=== PATIENT | female | born 1970 | race Caucasian/White ===

== ENCOUNTER 2017-08-02 12:55 | Inpatient (IN) | payer OTHER ==
[~2017-08-02] VITALS: Ht 165.1 cm; Wt 78.6 kg
[~2017-08-02 12:55] MED LIST: ALBU3SOL49 IH; AMIK500I IV; BACL10TA4 GT; BISA10SU1 RC; CALC-46 GT; DOCU50SO1 GT/PO; HEPA500056 SUBQ; LACT10SO11 GT; LEVE1000 GT; MAGN400S60 GT; MEDI30SO1 GT; MERO1PDS2 IV; MULT5SOL7 GT; NA P135N9 RC; SACC250C6 GT; TOP100 PO
[2017-08-02] MEDS ORDERED: NACL 0.9% 1,000 ML IV ONE ×2 (13:00→16:30)
[2017-08-02] MEDS ORDERED: ALBUTEROL SULFATE/IPRATROPIU 3 ML SOL IH ONE ×2 (13:00)
[2017-08-02 13:05] VITALS: BP 137/81
[2017-08-02 13:58] LABS: HEMATOCRIT 41.4 % (36-48); HEMOGLOBIN 13.5 g/dL (12.0-16.0); MEAN CORPUSCULAR HEMOGLOBIN 31 pg (27-31); MEAN CORPUSCULAR HGB CONC 33 g/dL (33-37); MEAN CORPUSCULAR VOLUME 94 fL (80-94); PLATELET COUNT (AUTO) 534 K/uL (140-450); RED CELL DISTRIBUTION WIDTH 12.1 % (11.6-13.7)
[2017-08-02] MEDS ORDERED: PIPERACILLIN/TAZOBACTAM 3.375 GM in DEXTROSE 5% 50 ML IV ONE (14:00)
[2017-08-02 14:11] LABS: PROTHROMBIN TIME 12.4 secs (10.8-13.4)
[2017-08-02 14:12] LABS: ALBUMIN 2.2 g/dL (3.4-5.0); ANION GAP 14.1 (8-16); CARBON DIOXIDE 22.3 mmol/L (21-32); CREATININE 0.8 mg/dL (0.6-1.3); POTASSIUM 3.4 mmol/L (3.5-5.1); TOTAL BILIRUBIN 1.4 mg/dL (0.0-1.0)
[2017-08-02 14:18] LABS: WHITE BLOOD COUNT (AUTO) 75.5 K/uL (4.8-10.8)
[2017-08-02] MEDS ORDERED: AMPICILLIN/SULBACTAM 3 GM VIAL ONE (14:25)
[2017-08-02] MEDS ORDERED: PIPER/TAZO 3.375GM/D5W PREMIX 50 ML IV SCH (14:29)
[2017-08-02 14:32] LABS: LYMPHOCYTES % (MANUAL) 1 % (20-46); MONOCYTES % (MANUAL) 10 % (5-12)
[2017-08-02] MEDS ORDERED: DOCUSATE SODIUM 100 MG GELCAP PO PRN (14:50)
[2017-08-02] MEDS ORDERED: ONDANSETRON 4 MG/2 ML VIAL IM/IVP PRN (14:50)
[2017-08-02] MEDS ORDERED: LAM200 GT (15:09)
[2017-08-02] MEDS ORDERED: TOP100 GT (15:09)
[2017-08-02 15:56] LABS: CHOL/HDL RATIO 5.5 (1-4.5); FREE T4 (FREE THYROXINE) 1.63 ng/dL (0.76-1.46); PHOSPHORUS 3.7 mg/dL (2.5-4.9); THYROID STIMULATING HORMONE 1.5 uIU/mL (0.34-3.74)
[2017-08-02] MEDS ORDERED: ALBUTEROL SULFATE/IPRATROPIU 3 ML SOL IH PRN (16:25)
[2017-08-02] MEDS ORDERED: BISACODYL 10 MG SUPP RC PRN (16:25)
[2017-08-02] MEDS ORDERED: MAGNESIUM HYDROXIDE 2400 MG/30 ML UDC GT PRN (16:25)
[2017-08-02 16:52] LABS: BILIRUBIN,URINE 1+ (NEGATIVE); BLOOD, URINE 1+ (NEGATIVE); COLOR,URINE YELLOW (YELLOW); LEUKOCYTE ESTERASE ,URINE 1+ (NEGATIVE); NITRITE, URINE POSITIVE (NEGATIVE); UGLUCOSE NEGATIVE (NEGATIVE)
[2017-08-02 16:59] LABS: APPEARANCE,URINE HAZY (CLEAR)
[2017-08-02 17:09] LABS: RBC,URINE 11-20 (MOD) /HPF (0-5); WBC,URINE 20-60 /HPF (0-5)
[2017-08-02] MEDS ORDERED: DEXTROSE 50% 50 ML SYR IVP PRN (17:35)
[2017-08-02] MEDS ORDERED: MIDAZOLAM 2 MG/2 ML VIAL ONE (19:02)
[2017-08-02] MEDS ORDERED: fentaNYL 0.05 MG/ML VIAL ONE (19:02)
[2017-08-02 19:25] VITALS: BP 117/68
[2017-08-02] MEDS: ALBUTEROL SULFATE/IPRATROPIU 3 ML SOL IH SCH ×2 (19:50→23:45)
[2017-08-02 20:00] VITALS: BP 123/68
[2017-08-02] MEDS: FAMOTIDINE 20 MG TAB GT SCH (20:47)
[2017-08-02] MEDS: BACLOFEN 10 MG TAB GT SCH (20:47)
[2017-08-02] MEDS: DOCUSATE 100 MG/10 ML UDC GT SCH (20:47)
[2017-08-02] MEDS ORDERED: NON-FORMULARY ITEM (Amino Acids/Protein Hydrolys (Pro-Stat Sugar Free Liquid Pkt) 30 ML) GT SCH (21:00)
[2017-08-02] MEDS: AMANTADINE 100 MG CAP GT SCH (21:00)
[2017-08-02] MEDS ORDERED: PIPERACILLIN/TAZOBACTAM 3.375 GM in DEXTROSE 5% 50 ML IV SCH (21:00)
[2017-08-02] MEDS ORDERED: DOCUSATE SODIUM 100 MG GT/PO SCH (21:00)
[2017-08-02] MEDS ORDERED: NON-FORMULARY ITEM (Calcium Carbonate/Vitamin D3 (Calcium 600 + Vit D3 Tablet) 1 TAB) GT SCH (21:00)
[2017-08-02] MEDS: TOPIRAMATE 100 MG TAB GT SCH (21:03)
[2017-08-02] MEDS: INSULIN LISPRO SLIDING SCALE 100 UNITS/ML VIAL SUBQ PRN (21:05)
[2017-08-02] MEDS: BLOOD GLUCOSE MONITORING 1 DEV DEV FS SCH (21:13)
[2017-08-02 21:22] VITALS: BP 105/72
[2017-08-02] MEDS ORDERED: PIPERACILLIN/TAZOBACTAM 3.375 GM VIAL IV ONE (21:22)
[2017-08-02] MEDS: PIPER/TAZO 3.375GM/D5W PREMIX 50 ML IV SCH (21:42)
[2017-08-02] MEDS: NACL 0.9% 1,000 ML IV SCH (21:43)
[2017-08-02 22:00] VITALS: BP 106/71
[2017-08-02] MEDS ORDERED: MIDAZOLAM 2 MG/2 ML VIAL IV ONE (22:35)
[2017-08-02 23:46] VITALS: BP 119/69
[2017-08-02] MEDS: ACETYLCYSTEINE 20% (200 MG/ML) 200 MG/ML VIAL INH SCH (23:46)
[2017-08-03] VITALS (24 sets, daily range): BP systolic 98–150; BP diastolic 59–94
[2017-08-03] MEDS: ACETYLCYSTEINE 20% (200 MG/ML) 200 MG/ML VIAL INH SCH ×6 (03:00→23:18)
[2017-08-03] MEDS: ALBUTEROL SULFATE/IPRATROPIU 3 ML SOL IH SCH ×6 (03:01→23:18)
[2017-08-03] MEDS ORDERED: PIPERACILLIN/TAZOBACTAM 3.375 GM VIAL IV ONE (03:58)
[2017-08-03] MEDS: PIPER/TAZO 3.375GM/D5W PREMIX 50 ML IV SCH ×4 (04:32→23:30)
[2017-08-03 05:06] LABS: HEMATOCRIT 35.1 % (36-48); HEMOGLOBIN 11.9 g/dL (12.0-16.0); MEAN CORPUSCULAR HEMOGLOBIN 32 pg (27-31); MEAN CORPUSCULAR HGB CONC 34 g/dL (33-37); MEAN CORPUSCULAR VOLUME 94 fL (80-94); PLATELET COUNT (AUTO) 476 K/uL (140-450); RED BLOOD CELL COUNT(AUTO) 3.74 MIL/uL (4.20-5.40); RED CELL DISTRIBUTION WIDTH 12.1 % (11.6-13.7)
[2017-08-03] MEDS ORDERED: BISACODYL 10 MG SUPP RC PRN (07:12)
[2017-08-03] MEDS ORDERED: DOCUSATE 100 MG/10 ML UDC PO PRN (07:23)
[2017-08-03] MEDS: NACL 0.9% 1,000 ML IV SCH ×2 (07:27→19:51)
[2017-08-03 07:28] LABS: WHITE BLOOD COUNT (AUTO) 58.9 K/uL (4.8-10.8)
[2017-08-03 07:29] LABS: LYMPHOCYTES % (MANUAL) 2 % (20-46); MONOCYTES % (MANUAL) 5 % (5-12)
[2017-08-03] MEDS: BLOOD GLUCOSE MONITORING 1 DEV DEV FS SCH ×4 (07:49→21:22)
[2017-08-03 08:26] LABS: T4 (THYROXINE) 9.2 ug/dL (4.5-12.0)
[2017-08-03] MEDS ORDERED: PIPERACILLIN/TAZOBACTAM 3.375 GM in DEXTROSE 5% 50 ML IV SCH (09:00)
[2017-08-03] MEDS ORDERED: LEVOFLOXACIN 750 MG/D5W PREMIX 150 ML IV SCH (09:00)
[2017-08-03] MEDS: ASPIRIN 81 MG TAB.CHEW GT SCH (09:11)
[2017-08-03] MEDS: DOCUSATE 100 MG/10 ML UDC GT SCH ×2 (09:11→21:13)
[2017-08-03] MEDS: FAMOTIDINE 20 MG TAB GT SCH ×2 (09:11→21:15)
[2017-08-03] MEDS: BACLOFEN 10 MG TAB GT SCH ×2 (09:11→21:15)
[2017-08-03] MEDS: TOPIRAMATE 100 MG TAB GT SCH ×2 (09:12→21:14)
[2017-08-03] MEDS: POLYETHYLENE GLYCOL 17 GM/PKT GT SCH (09:12)
[2017-08-03] MEDS: AMANTADINE 100 MG CAP GT SCH ×2 (09:12→21:16)
[2017-08-03] MEDS: MULTIVITAMIN 5 ML ORASYR GT SCH (09:12)
[2017-08-03 10:04] LABS: ANION GAP 11.6 (8-16); CARBON DIOXIDE 23.8 mmol/L (21-32); CREATININE 0.6 mg/dL (0.6-1.3)
[2017-08-03 10:07] LABS: POTASSIUM 2.4 mmol/L (3.5-5.1)
[2017-08-03] MEDS ORDERED: POTASSIUM CHLORIDE 40 MEQ, LIDOCAINE 1% 25 MG in NACL 0.9% 250 ML IV SCH ×2 (11:30→16:00)
[2017-08-03] MEDS ORDERED: VANCOMYCIN PER PHARMACY MC PRN (15:10)
[2017-08-03] MEDS: INSULIN LISPRO SLIDING SCALE 100 UNITS/ML VIAL SUBQ PRN ×2 (16:11→21:24)
[2017-08-03] MEDS ORDERED: LIDOCAINE 2% 100 MG/5 ML SYR IVP ONE (18:03)
[2017-08-03] MEDS ORDERED: BISACODYL 5 MG TABEC PO PRN (18:15)
[2017-08-03 20:58] LABS: ANION GAP 14.3 (8-16); CARBON DIOXIDE 20.8 mmol/L (21-32); CREATININE 0.6 mg/dL (0.6-1.3); POTASSIUM 3.1 mmol/L (3.5-5.1)
[2017-08-03] MEDS: CALCIUM CARB/VIT-D 500 MG/200 IU 1 TAB GT SCH (21:13)
[2017-08-03] MEDS: LINEZOLID 600MG PREMIX 300 ML IV SCH (21:16)
[2017-08-03] MEDS ORDERED: KCL 20 MEQ/WATER INJ PREMIX 200 ML IV ONE (22:00)
[2017-08-04] VITALS (23 sets, daily range): BP systolic 103–142; BP diastolic 58–86
[2017-08-04] MEDS: ACETYLCYSTEINE 20% (200 MG/ML) 200 MG/ML VIAL INH SCH ×6 (02:55→23:24)
[2017-08-04] MEDS: ALBUTEROL SULFATE/IPRATROPIU 3 ML SOL IH SCH ×6 (02:55→23:25)
[2017-08-04] MEDS: PIPER/TAZO 3.375GM/D5W PREMIX 50 ML IV SCH ×4 (05:17→23:49)
[2017-08-04 06:02] LABS: HEMATOCRIT 30.8 % (36-48); HEMOGLOBIN 10.6 g/dL (12.0-16.0); MEAN CORPUSCULAR HEMOGLOBIN 32 pg (27-31); MEAN CORPUSCULAR HGB CONC 34 g/dL (33-37); MEAN CORPUSCULAR VOLUME 94 fL (80-94); PLATELET COUNT (AUTO) 409 K/uL (140-450); RED CELL DISTRIBUTION WIDTH 12.2 % (11.6-13.7)
[2017-08-04 06:22] LABS: MAGNESIUM 1.9 mg/dL (1.8-2.4); PHOSPHORUS 1.1 mg/dL (2.5-4.9)
[2017-08-04 06:24] LABS: ANION GAP 13.6 (8-16); CARBON DIOXIDE 21.1 mmol/L (21-32); CREATININE 0.5 mg/dL (0.6-1.3)
[2017-08-04 06:34] LABS: POTASSIUM 2.7 mmol/L (3.5-5.1)
[2017-08-04] MEDS ORDERED: KCL 20 MEQ/WATER INJ PREMIX 200 ML IV ONE (06:45)
[2017-08-04] MEDS: HYDROcodone/APAP 7.5/325 MG 1 TAB PO PRN ×3 (06:46→23:49)
[2017-08-04 07:17] LABS: WHITE BLOOD COUNT (AUTO) 54.5 K/uL (4.8-10.8)
[2017-08-04 07:18] LABS: LYMPHOCYTES % (MANUAL) 5 % (20-46); MONOCYTES % (MANUAL) 5 % (5-12)
[2017-08-04] MEDS: BLOOD GLUCOSE MONITORING 1 DEV DEV FS SCH ×4 (07:57→21:00)
[2017-08-04] MEDS: POLYETHYLENE GLYCOL 17 GM/PKT GT SCH (08:39)
[2017-08-04] MEDS: LINEZOLID 600MG PREMIX 300 ML IV SCH ×2 (08:39→20:14)
[2017-08-04] MEDS: DOCUSATE 100 MG/10 ML UDC GT SCH ×2 (08:40→20:14)
[2017-08-04] MEDS: AMANTADINE 100 MG CAP GT SCH ×2 (08:40→20:12)
[2017-08-04] MEDS: BACLOFEN 10 MG TAB GT SCH ×2 (08:40→20:13)
[2017-08-04] MEDS: ASPIRIN 81 MG TAB.CHEW GT SCH (08:40)
[2017-08-04] MEDS: TOPIRAMATE 100 MG TAB GT SCH ×2 (08:40→20:13)
[2017-08-04] MEDS: MULTIVITAMIN 5 ML ORASYR GT SCH (08:41)
[2017-08-04] MEDS: FAMOTIDINE 20 MG TAB GT SCH ×2 (08:41→20:12)
[2017-08-04] MEDS: POTASSIUM CHLORIDE 20% 40 MEQ/15 ML UDC GT SCH (08:41)
[2017-08-04] MEDS: INSULIN LISPRO SLIDING SCALE 100 UNITS/ML VIAL SUBQ PRN ×4 (10:03→20:15)
[2017-08-04] MEDS ORDERED: POTASSIUM CHLORIDE 40 MEQ, LIDOCAINE 1% 25 MG in NACL 0.9% 250 ML IV SCH (13:00)
[2017-08-04] MEDS ORDERED: ACETYLCYSTEINE 10% (100 MG/ML) 100 MG/ML VIAL INH SCH (16:00)
[2017-08-04] MEDS: NACL 0.9% 1,000 ML IV SCH (17:20)
[2017-08-04] MEDS: CALCIUM CARB/VIT-D 500 MG/200 IU 1 TAB GT SCH (20:13)
[2017-08-05] VITALS (60 sets, daily range): BP systolic 47–168; BP diastolic 16–112
[2017-08-05] MEDS: ACETYLCYSTEINE 20% (200 MG/ML) 200 MG/ML VIAL INH SCH ×6 (03:08→23:00)
[2017-08-05] MEDS: ALBUTEROL SULFATE/IPRATROPIU 3 ML SOL IH SCH ×6 (03:08→22:29)
[2017-08-05] MEDS: MORPHINE SULFATE 2 MG/ML SYR IVP PRN ×2 (03:52→09:46)
[2017-08-05] MEDS: PIPER/TAZO 3.375GM/D5W PREMIX 50 ML IV SCH ×3 (05:26→17:29)
[2017-08-05] MEDS: BLOOD GLUCOSE MONITORING 1 DEV DEV FS SCH ×4 (06:47→20:56)
[2017-08-05 06:50] LABS: HEMATOCRIT 28.1 % (36-48); HEMOGLOBIN 9.6 g/dL (12.0-16.0); MEAN CORPUSCULAR HEMOGLOBIN 32 pg (27-31); MEAN CORPUSCULAR HGB CONC 34 g/dL (33-37); MEAN CORPUSCULAR VOLUME 93 fL (80-94); PLATELET COUNT (AUTO) 387 K/uL (140-450); RED BLOOD CELL COUNT(AUTO) 3.03 MIL/uL (4.20-5.40); RED CELL DISTRIBUTION WIDTH 12.6 % (11.6-13.7)
[2017-08-05] MEDS: INSULIN LISPRO SLIDING SCALE 100 UNITS/ML VIAL SUBQ PRN ×3 (06:53→20:54)
[2017-08-05 07:10] LABS: ANION GAP 11.7 (8-16); CARBON DIOXIDE 23.3 mmol/L (21-32); CREATININE 0.6 mg/dL (0.6-1.3)
[2017-08-05 07:16] LABS: MAGNESIUM 1.8 mg/dL (1.8-2.4); PHOSPHORUS 1.9 mg/dL (2.5-4.9)
[2017-08-05 07:26] LABS: LYMPHOCYTES % (MANUAL) 4 % (20-46); MONOCYTES % (MANUAL) 6 % (5-12); WHITE BLOOD COUNT (AUTO) 46.5 K/uL (4.8-10.8)
[2017-08-05 07:27] LABS: EOSINOPHILS % (MANUAL) 3 % (0-4)
[2017-08-05] MEDS ORDERED: KCL 20 MEQ/WATER INJ PREMIX 200 ML IV ONE (08:00)
[2017-08-05] MEDS: ASPIRIN 81 MG TAB.CHEW GT SCH (09:00)
[2017-08-05] MEDS: DOCUSATE 100 MG/10 ML UDC GT SCH ×2 (09:00→20:56)
[2017-08-05] MEDS: BACLOFEN 10 MG TAB GT SCH ×2 (09:02→20:56)
[2017-08-05] MEDS: FAMOTIDINE 20 MG TAB GT SCH ×2 (09:03→20:55)
[2017-08-05] MEDS: AMANTADINE 100 MG CAP GT SCH ×2 (09:04→20:58)
[2017-08-05] MEDS: POTASSIUM CHLORIDE 20% 40 MEQ/15 ML UDC GT SCH (09:04)
[2017-08-05] MEDS: TOPIRAMATE 100 MG TAB GT SCH ×2 (09:05→20:55)
[2017-08-05] MEDS: POLYETHYLENE GLYCOL 17 GM/PKT GT SCH (09:06)
[2017-08-05] MEDS: LINEZOLID 600MG PREMIX 300 ML IV SCH ×2 (09:06→20:56)
[2017-08-05] MEDS: POTASSIUM CHLORIDE 10 MEQ TABER PO SCH (09:06)
[2017-08-05] MEDS: NACL 0.9% 1,000 ML IV SCH ×2 (09:07→18:06)
[2017-08-05] MEDS: MULTIVITAMIN 5 ML ORASYR GT SCH (09:07)
[2017-08-05] MEDS: SODIUM PHOS / POTASSIUM PHOS 1 PKT PDR GT SCH ×3 (09:07→17:29)
[2017-08-05] MEDS: ACETAMINOPHEN 325 MG TAB PO PRN ×2 (10:05→21:05)
[2017-08-05] MEDS ORDERED: LORazepam 2 MG/ML VIAL IVP SCH (10:50)
[2017-08-05] MEDS ORDERED: MORPHINE SULFATE 4 MG/ML SYR IVP SCH (10:50)
[2017-08-05] MEDS ORDERED: KETOROLAC 30 MG/ML VIAL IVP PRN (12:25)
[2017-08-05] MEDS: MIDAZOLAM MDV 50 MG in NACL 0.9% 40 ML IV PRN (13:11)
[2017-08-05] MEDS: fentaNYL 1 MG in NACL 0.9% 80 ML IV PRN (13:25)
[2017-08-05] MEDS ORDERED: NACL 0.9% 1,000 ML IV ONE (16:30)
[2017-08-05] MEDS: NOREPINEPHRINE 4 MG in DEXTROSE 5% 250 ML IV PRN ×2 (17:56→22:51)
[2017-08-05] MEDS: CALCIUM CARB/VIT-D 500 MG/200 IU 1 TAB GT SCH (20:56)
[2017-08-05] MEDS ORDERED: NACL 0.9% 500 ML IV ONE ×2 (22:10→23:45)
[2017-08-05] MEDS ORDERED: PHENYLEPHRINE 10 MG in NACL 0.9% 250 ML IV PRN (22:10)
[2017-08-05] MEDS ORDERED: PHENYLEPHRINE 10 MG/ML VIAL ONE (22:24)
[2017-08-05] MEDS: PHENYLEPHRINE 40 MG in NACL 0.9% 250 ML IV PRN (22:30)
[2017-08-05] MEDS ORDERED: VASOPRESSIN 20 UNITS in NACL 0.9% 250 ML IV SCH (22:30)
[2017-08-05] MEDS ORDERED: TOBRAMYCIN PER PHARMACY MC PRN (23:15)
[2017-08-05] MEDS ORDERED: TOBRAMYCIN 150 MG in DEXTROSE 5% 100 ML IV SCH (23:45)
[2017-08-05] MEDS ORDERED: TOBRAMYCIN 80 MG/2 ML VIAL ONE (23:54)
[2017-08-06] VITALS (77 sets, daily range): BP systolic 43–212; BP diastolic 2–110
[2017-08-06] MEDS ORDERED: TOBRAMYCIN 80 MG/2 ML VIAL ONE (00:03)
[2017-08-06] MEDS: PIPER/TAZO 3.375GM/D5W PREMIX 50 ML IV SCH ×4 (00:09→17:25)
[2017-08-06] MEDS: NACL 0.9% 1,000 ML IV SCH ×2 (00:16→18:15)
[2017-08-06] MEDS: NOREPINEPHRINE 4 MG in DEXTROSE 5% 250 ML IV PRN ×2 (01:19→03:51)
[2017-08-06] MEDS: ALBUTEROL SULFATE/IPRATROPIU 3 ML SOL IH SCH ×4 (03:00→15:06)
[2017-08-06] MEDS: ACETYLCYSTEINE 20% (200 MG/ML) 200 MG/ML VIAL INH SCH ×4 (03:00→15:06)
[2017-08-06] MEDS ORDERED: NOREPINEPHRINE 4 MG/4 ML VIAL IV ONE ×2 (03:46→06:22)
[2017-08-06] MEDS ORDERED: PHENYLEPHRINE 10 MG/ML VIAL ONE (04:17)
[2017-08-06] MEDS: PHENYLEPHRINE 40 MG in NACL 0.9% 250 ML IV PRN ×4 (04:25→18:48)
[2017-08-06] MEDS: NOREPINEPHRINE 8 MG in DEXTROSE 5% 250 ML IV PRN ×2 (06:35→14:59)
[2017-08-06] MEDS: BLOOD GLUCOSE MONITORING 1 DEV DEV FS SCH ×3 (06:43→17:19)
[2017-08-06 06:59] LABS: ANION GAP 17.9 (8-16); CARBON DIOXIDE 18.4 mmol/L (21-32); CREATININE 0.9 mg/dL (0.6-1.3); MAGNESIUM 1.9 mg/dL (1.8-2.4); PHOSPHORUS 5.2 mg/dL (2.5-4.9); POTASSIUM 4.3 mmol/L (3.5-5.1)
[2017-08-06 07:19] LABS: HEMATOCRIT 32.1 % (36-48); HEMOGLOBIN 10.6 g/dL (12.0-16.0); MEAN CORPUSCULAR HEMOGLOBIN 32 pg (27-31); MEAN CORPUSCULAR HGB CONC 33 g/dL (33-37); MEAN CORPUSCULAR VOLUME 97 fL (80-94); PLATELET COUNT (AUTO) 360 K/uL (140-450); RED BLOOD CELL COUNT(AUTO) 3.32 MIL/uL (4.20-5.40); RED CELL DISTRIBUTION WIDTH 13.8 % (11.6-13.7)
[2017-08-06] MEDS: MIDAZOLAM MDV 50 MG in NACL 0.9% 40 ML IV PRN (08:07)
[2017-08-06 08:16] LABS: LYMPHOCYTES % (MANUAL) 13 % (20-46); METAMYELOCYTES % 2 % (0-0); MONOCYTES % (MANUAL) 2 % (5-12)
[2017-08-06] MEDS: AMANTADINE 100 MG CAP GT SCH (08:30)
[2017-08-06] MEDS: POTASSIUM CHLORIDE 20% 40 MEQ/15 ML UDC GT SCH (08:30)
[2017-08-06] MEDS: DOCUSATE 100 MG/10 ML UDC GT SCH (08:30)
[2017-08-06] MEDS: SODIUM PHOS / POTASSIUM PHOS 1 PKT PDR GT SCH ×3 (08:31→17:24)
[2017-08-06] MEDS: TOPIRAMATE 100 MG TAB GT SCH (08:31)
[2017-08-06] MEDS: BACLOFEN 10 MG TAB GT SCH (08:32)
[2017-08-06] MEDS: POTASSIUM CHLORIDE 10 MEQ TABER PO SCH (08:32)
[2017-08-06] MEDS: POLYETHYLENE GLYCOL 17 GM/PKT GT SCH (08:32)
[2017-08-06] MEDS: FAMOTIDINE 20 MG TAB GT SCH (08:33)
[2017-08-06] MEDS: ASPIRIN 81 MG TAB.CHEW GT SCH (08:33)
[2017-08-06] MEDS: MULTIVITAMIN 5 ML ORASYR GT SCH (08:34)
[2017-08-06] MEDS: LINEZOLID 600MG PREMIX 300 ML IV SCH (08:37)
[2017-08-06] MEDS ORDERED: NACL 0.9% 1,000 ML IV ONE (10:45)
[2017-08-06] MEDS ORDERED: TOBRAMYCIN 140 MG in DEXTROSE 5% 100 ML IV SCH (13:00)
[2017-08-06] MEDS: fentaNYL 1 MG in NACL 0.9% 80 ML IV PRN (13:17)
[2017-08-06] MEDS: ACETAMINOPHEN 325 MG TAB PO PRN (17:36)
[2017-08-06] MEDS ORDERED: HYDROCORTISONE NA SUCC 100 MG/2 ML VIAL IV SCH ×2 (17:43→21:00)
[2017-08-06] MEDS ORDERED: DOPamine 400 MG/D5W PREMIX 250 ML IV SCH (17:45)
== END 2017-08-06 19:09 | disposition expired | DRG 853 ==
LOC: MED 12:55 → MIC 14:52
PROVIDERS: ADMIT Family Medicine Sports Medicine; ATTEND Family Medicine Sports Medicine
PROC: 5A1945Z Respiratory Ventilation, 24-96 Consecutive Hours (ICD-10-PCS; principal; 2017-08-02)
PROC: 0B9J8ZZ Drainage of Left Lower Lung Lobe, Via Natural or Artificial Opening Endoscopic (ICD-10-PCS; 2017-08-02)
PROC: 0B9H8ZZ Drainage of Lung Lingula, Via Natural or Artificial Opening Endoscopic (ICD-10-PCS; 2017-08-02)
PROC: 02HV33Z Insertion of Infusion Device into Superior Vena Cava, Percutaneous Approach (ICD-10-PCS; 2017-08-02)
PROC: B548ZZA Ultrasonography of Superior Vena Cava, Guidance (ICD-10-PCS; 2017-08-02)
PROC: 0W9B00Z Drainage of Left Pleural Cavity with Drainage Device, Open Approach (ICD-10-PCS; 2017-08-03)
DX: A41.9 Sepsis, unspecified organism (principal); J18.9 Pneumonia, unspecified organism; N17.0 Acute kidney failure with tubular necrosis; J96.21 Acute and chronic respiratory failure with hypoxia; R65.21 Severe sepsis with septic shock; E43 Unspecified severe protein-calorie malnutrition; G93.1 Anoxic brain damage, not elsewhere classified; D68.59 Other primary thrombophilia; E87.1 Hypo-osmolality and hyponatremia; N39.0 Urinary tract infection, site not specified; I46.9 Cardiac arrest, cause unspecified; E11.65 Type 2 diabetes mellitus with hyperglycemia; E87.6 Hypokalemia; D64.9 Anemia, unspecified; E87.8 Other disorders of electrolyte and fluid balance, not elsewhere classified; G40.409 Other generalized epilepsy and epileptic syndromes, not intractable, without status epilepticus; E83.39 Other disorders of phosphorus metabolism; J45.20 Mild intermittent asthma, uncomplicated; K21.9 Gastro-esophageal reflux disease without esophagitis; Z87.820 Personal history of traumatic brain injury; Z90.81 Acquired absence of spleen; Z93.0 Tracheostomy status; Z93.1 Gastrostomy status; Z88.8 Allergy status to other drugs, medicaments and biological substances; Z88.1 Allergy status to other antibiotic agents; Z91.041 Radiographic dye allergy status; Z68.28 Body mass index [BMI] 28.0-28.9, adult; Z74.01 Bed confinement status
CPT/HCPCS: 36415; 36600; 71045; 71250; 76604; 80048; 80053; 81001; 82150; 82803; 82948; 83036; 83605; 83690; 83735; 83880; 84100; 84436; 84439; 84443; 84479; 84484; 85025; 85610; 85730; 87040; 87070; 87081; 87086; 87186; 87205; 89220; 93005; 94002; 94003; 94640; 96361; 96365; 99291; J0295; J1720; J1815; J1885; J1956; J2001; J2020; J2060; J2250; J2270; J2370; J2543; J3010; J3260; J3480; J3490; J7030; J7060; J7608; J7620; Q0092